=== PATIENT | male | born 1955 | race Caucasian/White ===

== ENCOUNTER 2018-02-14 13:48 | Observation (INO) ==
[2018-02-14] MEDS ORDERED: Naloxone 0.4 MG/ML INJ IVP PRN (17:58)
[2018-02-14] MEDS ORDERED: traMADol 50 MG TABLET PO PRN (17:59)
--- NOTE | 2018-02-14 18:15 | Internal Med History&Physical ---
Date of Encounter: 02/14/18 Time of Encounter: 17:00 Internal Medicine - H&P: HPI Chief complaint: CP Admitted From: Emergency Dept Plans for Post Hospital Care: Home History of present illness: Mr. Gill is a 62 year old male w/PMH of HTN, asthma, osteoarthritis, fibromyalgia, and anxiety presents from [place] [facility] w/CC of CP that began last night at work as centralized pressure that was intermittent. 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 Sx w/exertion. No alleviating factors. Associated factors: lightheadedness, HTN, headache, dizziness, weakness. Denies nausea, vomiting, diaphoresis. Pt. denies any cardiac hx, hx of catheterization/stents, or recent cardiac w/u. Patient denies recent illness , fever, chills, nausea, vomiting, changes in vision, unusual bleeding, abdominal pain, cough, chest congestion, diarrhea, constipation, numbness, tingling, pre-syncope, or syncope. Past Med Surg Social Fam HX - Past Medical History Source: patient, old records reviewed, obtained from family Medical history: asthma, fibromyalgia, hypertension, other (Osteoarthritis) Additional medical history: chronic back pain Psychiatric history: anxiety - Past Surgical History Surgical History: orthopedic, other Additional surgical history: neck fusion, skin graft - Social History Smoking Status: Never smoker Alcohol use: none Drug use: none Occupational status: employed Current living situation: Home, With Family Activity Level: Independent ambulation, Very active Recent Out of Country Travel Within the Last 8 Weeks: No Exposure or Possible Exposure to Illness During Travel: No - Family History Mother Race: Family Member Ethnicity: Non- Living Status: Age at : 83 Cause of : Alzheimer's disease Hx Family Respiratory Disorders: Yes (HTN) Hx Family Endocrine Disorder: Yes (DM) Hx Family Neurologic Disorders: Yes (Alzheimer's disease) Father Race: Family Member Ethnicity: Non- Living Status: Age at : 84 Cause of : HF Hx Family Cardiac Disorders: Yes (HF, [place], HTN) Hx Family Genitourinary Disorders: Yes (Kidney stones) Hx Family Endocrine Disorder: Yes (DM) Brother Race: Family Member Ethnicity: Non- Living Status: Still Living Hx Family Cardiac Disorders: Yes (Atrial fibrillation) Sister Race: Family Member Ethnicity: Non- Living Status: Still Living Hx Family Musculoskeletal Disorders: Yes (Osteoarthritis, Fibromyalgia) Internal Medicine - H&P: Meds Atenolol [Tenormin] 50 mg PO DAILY 02/14/18 [History] Gabapentin [Neurontin] 600 mg PO TID 02/14/18 [History] Ibuprofen [Ibu] 600 mg PO TID 02/14/18 [History] Lisinopril [Zestril] 10 mg PO DAILY 02/14/18 [History] Tramadol HCl [Ultram] 100 mg PO TID PRN 02/14/18 [History] clonazePAM [Clonazepam] 0.5 mg PO DAILY 02/14/18 [History] 3 Allergy/AdvReac Type Severity Reaction Status Date / Time hydrocodone [From Vicodin] AdvReac Itching Verified 09/04/15 11:41 All Systems PM: A 10-system review of systems was performed and is negative for pertinent findings except as documented above in the HPI. - Constitutional Constitutional: as per HPI, fatigue, weakness, no chills, no fever(s), no night sweats - EENT Eyes: no change in vision, no discharge, no pain, no photophobia Ears: no ear discharge, no ear pain, no tinnitus Nose, mouth and throat: no dysphagia, no nasal discharge, no neck pain, no sore throat - Breasts Breasts: as per HPI - Cardiovascular Cardiovascular ROS IM: as per HPI, chest pain, lightheadedness, no diaphoresis, no dyspnea, no palpitations, no syncope - Respiratory Respiratory: no cough, no dyspnea, no wheezing, no excessive phlegm production - Gastrointestinal Gastrointestinal: no abdominal pain, no diarrhea, no hematemesis, no hematochezia, no melena, no nausea, no vomiting - Genitourinary Genitourinary ROS male: as per HPI - Musculoskeletal Musculoskeletal ROS IM: as per HPI, arthralgias, myalgias, no numbness, no tingling - Integumentary Integumentary IM: no rash, no unusual bruising - Neurological Neurological ROS: as per HPI, dizziness, headache(s), weakness, no confusion, no convulsions, no focal weakness, no numbness, no tingling, no tremor(s) - Psychiatric Psychiatric: as per HPI, anxiety - Endocrine Endocrine IM: as per HPI - Hematologic/Lymphatic Hematologic/Lymphatic: no easy bruising - Allergic/Immunologic Allergic/Immunologic: as per HPI - Constitutional Vitals: Temp Pulse Resp BP Pulse Ox 98.2 F 53 16 139/89 94 02/14/18 15:44 02/14/18 15:44 02/14/18 15:44 02/14/18 15:44 02/14/18 15:44 General appearance: Present: cooperative, A&O X 3, pleasant, no acute distress, answers questions appropriately - Head Head exam: Present: atraumatic, normocephalic - Eye Eye exam: Present: PERRL, conjuntiva pink, sclera anicteric Pupils: Present: PERRL - ENT ENT exam: Present: normal exam - Neck Neck exam general surgery: Present: normal inspection, supple, trachea midline. Absent: lymphadenopathy - Respiratory Respiratory exam: Present: CTAB. Absent: accessory muscle use, rales, rhonchi, wheezes - Cardiovascular Cardiovascular exam: Present: bradycardia, +S1, +S2. Absent: diastolic murmur, gallop, rubs, systolic murmur - GI/Abdominal GI/Abdominal exam: Present: normal bowel sounds, soft, no peritoneal signs. Absent: distended, tenderness - Rectal Rectal exam: Present: deferred - Additional comments: exam deferred. - Extremities Exam Extremities exam: Present: warm, radial pulses palpable and symmetrical. Absent : calf tenderness, cyanotic, pedal edema - Back Exam Back exam: Present: normal inspection - Neurological Exam Neurological exam: Present: alert, CN II-XII intact, oriented X3, no focal deficits. Absent: pronater drift, facial droop, speech deficit - Psychiatric Psychiatric exam: Present: normal affect, normal mood - Skin Skin exam: Present: dry, intact Internal Med - H&P Results - EKG Data EKG shows normal: sinus rhythm Rate: bradycardia - EKG Data Prior EKG available for review: no EKG comments: 02/14/18 18:23 EKG dated 02/14/18 shows sinus bradycardia. - Diagnostic Studies Chest x-ray Additional comments: EXAMINATION: TWO VIEWS OF THE CHEST 02/14/2018 12:54 pm COMPARISON: None. HISTORY: ORDERING SYSTEM PROVIDED HISTORY: chest pain Initial encounter FINDINGS: Orthopedic hardware in the cervical spine. No focal consolidation, pleural effusion or pneumothorax. The cardiomediastinal silhouette is unremarkable. No overt pulmonary edema. No acute osseous abnormality. Hyperinflated lungs. XR/XR chest 2V IMPRESSION: COPD. No acute cardiopulmonary findings. D/ / Andreina Parker MD / Andreina Parker MD Interpreting Provider: Andreina Parker MD CT scan - head Additional comments: EXAMINATION: CT OF THE HEAD WITHOUT CONTRAST 02/14/2018 12:54 pm TECHNIQUE: CT of the head was performed without the administration of intravenous contrast. Dose modulation, iterative reconstruction, and/or weight based adjustment of the mA/kV was utilized to reduce the radiation dose to as low as reasonably achievable. COMPARISON: None. HISTORY: ORDERING SYSTEM PROVIDED HISTORY: hypertensive urgency FINDINGS: BRAIN/VENTRICLES: There is no acute intracranial hemorrhage, mass effect or midline shift. No abnormal extra-axial fluid collection. The ellison-white differentiation is maintained without evidence of an acute infarct. There is no evidence of hydrocephalus. ORBITS: The visualized portion of the orbits demonstrate no acute abnormality. SINUSES: The visualized paranasal sinuses and mastoid air cells demonstrate no acute abnormality. SOFT TISSUES/SKULL: No acute abnormality of the visualized skull or soft tissues. CT/CT head/brain wo con IMPRESSION: No acute intracranial abnormality. D/ / Damien Huff MD / Damien Huff MD Interpreting Provider: Damien Huff MD - Assessment and plan (1) Chest pain Current Visit: Yes Status: Acute Assessment and plan: Acute CP since last night when pt. was at work. Describes pain as centralized pressure that was intermittent. 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 Sx w/exertion. No alleviating factors. Associated factors: lightheadedness, HTN, headache, dizziness, weakness. Denies nausea, vomiting, diaphoresis. Pt. denies any cardiac hx, hx of catheterization/stents, or recent cardiac w/u. Initial troponin <0.03. Will trend. Continuous cardiac telemetry. Supplemental O2 w/titration and SpO2 monitoring PRN. Echocardiogram. NPO @ midnight for a.m. nuclear stress test. Bilateral carotid Dopplers d/t dizziness. 80 mg PO dose of Lipitor. Aspirin. Consider Cardiology consult if Echocardiogram, troponin, and/or stress test results abnormal. Pt. discussed w/ Dr. More who agrees w/plan of care. Pt. is high risk for further morbidity and cardiac event based on new onset of CP and cardiac sx, strong familial hx of cardiac disease and [place] (HF, [place], HTN, Afib), and personal risk factors of HTN. Recent HLD status unknown so lipid panel in a.m. labs. Observation. Qualifiers: Chest pain type: unspecified Qualified Code(s): R07.9 - Chest pain, unspecified (2) Hypokalemia Current Visit: Yes Status: Acute Assessment and plan: Acute hypokalemia w/potassium of 3.2 on admission. 40 mEq PO of potassium ordered. Potassium level @ 23:00. Will add additional PO dosing if still hypokalemic. Monitor f/u labs. Continuous cardiac telemetry. (3) Dizziness Current Visit: Yes Status: Acute Assessment and plan: Acute dizziness and weakness w/CP sx. Supplemental O2 w/titration and SpO2 monitoring PRN. Bilateral carotid Dopplers. Falls/safety precautions and up with assist only. CT of the head shows no acute intracranial abnormality. (4) Elevated brain natriuretic peptide (BNP) level Current Visit: Yes Status: Acute Assessment and plan: Mildly elevated BNP of 115 on admission, likely d/t current CP sx. Pt. denies hx or dx of CHF. Echocardiogram ordered. Continuous cardiac telemetry. Monitor pt. and I&O. (5) HTN (hypertension) Current Visit: Yes Status: Chronic Assessment and plan: Hx of chronic HTN. Monitor pt. and VS. Continue pts. Atenolol and lisinopril. Qualifiers: Hypertension type: essential hypertension Qualified Code(s): I10 - Essential (primary) hypertension (6) Anxiety Current Visit: Yes Status: Chronic Assessment and plan: Hx of chronic anxiety. Continue pts. Clonazepam. (7) Fibromyalgia Current Visit: Yes Status: Chronic Assessment and plan: Hx of chronic fibromyalgia and osteoarthritis. Continue pts. Ultram, Ibuprofen, and Neurontin. (8) DVT prophylaxis Current Visit: Yes Status: Acute Assessment and plan: Heparin 5,000 units SQ Q8HR for DVT prophylaxis. Monitor pt. for signs of bleeding. - Time Spent With Patient Total time spent is greater than 50% in coordination of care (as documented) at patient's floor/unit and/or counseling patient: Greater than 35 minutes
[2018-02-14] MEDS: Ibuprofen 600 MG TABLET PO SCH (19:48)
[2018-02-14] MEDS ORDERED: Acetaminophen 325 MG TABLET PO PRN (21:02)
[2018-02-14] MEDS: Gabapentin 300 MG CAPSULE PO SCH (21:47)
[2018-02-14] MEDS: *HR* Heparin 5,000 UNIT/ML VIAL SQ SCH (21:47)
[2018-02-14] MEDS ORDERED: Melatonin 3 MG TABLET PO PRN (23:28)
[2018-02-15 01:03] LABS: Basophils % 0.9 %; Eosinophils # 0.1 K/mcL (0.0-0.6); Eosinophils % 2.4 %; Hematocrit 33.8 % (37.5-50.1); Immature Granulocytes % 0.2 % (0-4); Lymphocytes # 1.2 K/mcL (0.6-4.6); Lymphocytes % 25.8 %; Mean Corpuscular HGB Conc 35.5 g/dL (31.6-35.5); Mean Corpuscular Hemoglobin 32.3 pg (28.0-33.3); Mean Corpuscular Volume 90.9 fL (83.0-100.0); Mean Platelet Volume 10.3 fL (9.4-12.4); Monocytes # 0.4 K/mcL (0.0-1.3); Monocytes % 8.1 %; Neutrophils # 2.9 K/mcL (1.6-8.9); Platelet Count 177 K/mcL (140-400); Red Blood Count 3.72 M/mcL (4.19-5.50); Red Cell Distribution Width 11.9 % (11.5-14.5); Segmented Neutrophils % 62.6 %
[2018-02-15 01:24] LABS: Alanine Aminotransferase 21 Units/L (7-52); Albumin/Globulin Ratio 1.7 (1.1-2.2); Alkaline Phosphatase 57 Units/L (34-104); Aspartate Amino Transferase 19 Units/L (13-39); BUN/Creatinine Ratio 13 (6-26); Bilirubin,Total 0.5 mg/dL (0.3-1.0); Blood Urea Nitrogen 12 mg/dL (8-23); Carbon Dioxide 27 mEq/L (23-29); Chloride 107 mEq/L (98-107); Chol/HDL Ratio 5.5 (0-4.9); Cholesterol 197 mg/dL (< 200); Globulin 2.3 g/dL (2.4-3.5); Glucose 90 mg/dL (70-105); HDL Cholesterol 36 mg/dL (40-59); LDL Cholesterol,Calculated 134 mg/dL (0-99); Osmolality,Calculated 289 (280-300); Potassium 3.7 mEq/L (3.5-5.1); Sodium 140 mEq/L (136-145); Total Protein 6.3 g/dL (6.4-8.9); Triglycerides 135 mg/dL (< 150); eGFR For African Americans > 60 (> 60); eGFR For Non-African Americans > 60 (> 60)
[2018-02-15] MEDS: *HR* Heparin 5,000 UNIT/ML VIAL SQ SCH (05:16)
[2018-02-15] MEDS ORDERED: Regadenoson 0.4 MG/5 ML SYRINGE IVP ONE (06:50)
[2018-02-15 07:59] LABS: Estimated Average Glucose 114 mg/dl; Hemoglobin A1C 5.6 %
[2018-02-15] MEDS ORDERED: clonazePAM 0.5 MG TABLET PO SCH (09:00)
[2018-02-15] MEDS: Ibuprofen 600 MG TABLET PO SCH (09:21)
[2018-02-15] MEDS: Gabapentin 300 MG CAPSULE PO SCH (09:21)
--- NOTE | 2018-02-15 10:09 | Internal Med Progress Note ---
Date of Encounter: 02/15/18 Time of Encounter: 10:09 - Assessment and plan (1) Chest pain Current Visit: Yes Status: Inactive Qualifiers: Chest pain type: unspecified Qualified Code(s): R07.9 - Chest pain, unspecified (2) HTN (hypertension) Current Visit: Yes Status: Chronic Qualifiers: Hypertension type: essential hypertension Qualified Code(s): I10 - Essential (primary) hypertension (3) DVT prophylaxis Current Visit: Yes Status: Acute (4) Anxiety Current Visit: Yes Status: Chronic (5) Fibromyalgia Current Visit: Yes Status: Chronic (6) Dizziness Current Visit: Yes Status: Acute (7) Hypokalemia Current Visit: Yes Status: Acute (8) Elevated brain natriuretic peptide (BNP) level Current Visit: Yes Status: Acute - Time Spent With Patient Total time spent is greater than 50% in coordination of care (as documented) at patient's floor/unit and/or counseling patient: - Constitutional Vitals: Temp Pulse Resp BP Pulse Ox 97.7 F 70 18 140/91 93 02/15/18 09:05 02/15/18 09:05 02/15/18 09:05 02/15/18 09:05 02/15/18 09:05 General appearance: Present: cooperative, A&O X 3, pleasant, no acute distress, answers questions appropriately Internal Medicine: Result - Labs CBC & Chem 7: 02/15/18 00:48 02/15/18 00:48 Labs: Short CBC 02/15/18 Range/Units 00:48 WBC 4.6 (4.3-11.1) K/mcL Hgb 12.0 L (12.9-16.9) g/dL Hct 33.8 L (37.5-50.1) % Plt Count 177 (140-400) K/mcL Neutrophils # 2.9 (1.6-8.9) K/mcL BMP 02/14/18 02/15/18 23:19 00:48 Sodium 140 Potassium 3.8 3.7 Chloride 107 Carbon Dioxide 27 BUN 12 Creatinine 0.90 Glucose 90 Calcium 9.0 Cardiac Enzymes 02/14/18 02/15/18 Range/Units 18:26 00:48 Troponin I < 0.03 < 0.03 (< 0.04) ng/mL Liver Function 02/15/18 Range/Units 00:48 Total Bilirubin 0.5 (0.3-1.0) mg/dL AST 19 (13-39) Units/L ALT 21 (7-52) Units/L Alkaline Phosphatase 57 (34-104) Units/L Albumin 4.0 (3.5-5.7) g/dL Consult Discharge Plan - Plan Referrals: Radha Flannery CNP [Primary Care Provider] - 02/22/18 9:00 am
[2018-02-15] MEDS ORDERED: hydrALAZINE 10 MG TABLET PO PRN (10:21)
[2018-02-15 11:24] VITALS: BP 134/84
--- NOTE | 2018-02-15 13:37 | Discharge Summary ---
<FrankyJanieMonster A - Last Filed: 02/15/18 14:53> - NOTES TO OUTPATIENT PROVIDER Notes to Outpatient Provider: Mr. Gill was admitted for chest pain on 02/14. Cardiac workup revealed sinus bradycardia. Discontinued home Atenolol and increased dose of Lisinopril to 20mg. Orders not resulted at time of discharge: Pending orders 02/14/18 18:03 EV echocardiogram Routine 02/14/18 18:04 NM naveen perf SPECT multi [NM] Routine 02/14/18 18:48 EV carotid duplex imaging BI Routine 02/16/18 04:00 Complete Blood Count [HEME] AM 0400 Comprehensive Metabolic Panel AM 0400 02/17/18 04:00 Complete Blood Count [HEME] AM 0400 Comprehensive Metabolic Panel AM 0400 Date of Encounter: 02/15/18 Time of Encounter: 13:35 - Discharge Diagnosis (1) Dizziness Priority: Primary Status: Acute Assessment and Plan: CT of the head revealed no acute abnormalities. Pt found to have sinus bradycardia. Hold home atenolol for bradycardia, but increase home lisinopril to continue BP management. (2) Chest pain Priority: Primary Status: Acute Assessment and Plan: Exercise stress test was normal Echocardiogram performed. Will call pt with results. Qualifiers: Chest pain type: chest pain on breathing Qualified Code(s): R07.1 - Chest pain on breathing; R07.81 - Pleurodynia (3) HTN (hypertension) Priority: Secondary Status: Chronic Assessment and Plan: Stop Atenolol Increase home dose of lisinopril to 20mg qd. Qualifiers: Hypertension type: essential hypertension Qualified Code(s): I10 - Essential (primary) hypertension (4) Anxiety Priority: Secondary Status: Chronic Assessment and Plan: Continue home meds (5) Fibromyalgia Priority: Secondary Status: Chronic Assessment and Plan: Continue Ultram, Ibuprofen, and Neurontin. Take ibuprofen with food and drink plenty of fluids. (6) Hypokalemia Priority: Secondary Status: Acute Assessment and Plan: Pt works in a very hot environment and drinks lots of water. Encouraged to drink some gatorade and eat bananas. (7) Elevated brain natriuretic peptide (BNP) level Priority: Secondary Status: Acute Hospital course: Mr. Gill is a 62 year old male Discharge discussed with: patient, family, nurse - Time Spent with Patient Total time spent providing and/or coordinating discharge services: - Discharge Medications Prescriptions: Atorvastatin [Lipitor] 10 mg PO HS #30 tablet Home Medications: Gabapentin [Neurontin] 600 mg PO TID 02/14/18 [History] Ibuprofen [Ibu] 600 mg PO TID 02/14/18 [History] Tramadol HCl [Ultram] 100 mg PO TID PRN 02/14/18 [History] clonazePAM [Clonazepam] 0.5 mg PO DAILY 02/14/18 [History] Atorvastatin [Lipitor] 10 mg PO HS #30 tablet 02/15/18 [Rx] Lisinopril [Zestril] 20 mg PO DAILY #30 02/15/18 [Rx] Allergies/Adverse Reactions: 3 Allergy/AdvReac Type Severity Reaction Status Date / Time hydrocodone [From Vicodin] AdvReac Itching Verified 09/04/15 11:41 Date of admission: 02/14/18 15:23 Primary care physician: Radha Flannery, [facility] Discharging clinician: Monster Wilkins - Constitutional Vitals: Temp Pulse Resp BP Pulse Ox 97.9 F 62 18 134/84 97 02/15/18 11:22 02/15/18 11:22 02/15/18 11:22 02/15/18 11:22 02/15/18 11:22 General appearance: Present: cooperative, A&O X 3, pleasant, no acute distress, answers questions appropriately Exam: Head: normocephalic, atraumatic Eyes: PERRL, EOMI, conjunctiva pink, sclera anicteric Neck: supple, trachea midline Lungs: CTA bilaterally. non-labored breathing. No wheezes, rales, or rhonchi noted. Heart: bradycardia with regular rhythm. +S1. +S2. no murmurs, clicks, or rubs noted. GI: abdomen soft, non-tender, non-distended. Normoactive bowel sounds. Extremities: warm. radial pulses present and symmetrical. No pedal edema or cyanosis noted. Neuro: A&Ox3. no focal deficits. no speech abnormality Skin: warm, dry, and intact. - Patient Status Disposition: Home, Self-Care Condition: Fair Functional capacity at discharge: independent ambulation Overall status at discharge: patient is back to baseline - Ambulatory Orders Ambulatory Orders: EV echocardiogram Time Frame: 2 Months, Location: Determined By Patient - Discharge Instructions Instructions: Bradycardia (DC) Follow Up With: Radha Flannery CNP [Primary Care Provider] - 02/22/18 9:00 am - Diet and Activity Activity: increase activity as tolerated Diet: low fat, low cholesterol, low salt diet <[email or web address] - Last Filed: 02/15/18 17:56> Orders not resulted at time of discharge: Pending orders 02/14/18 18:04 NM naveen perf SPECT multi [NM] Routine Date of Encounter: 02/15/18 - Discharge Diagnosis (1) Chest pain Status: Acute Qualifiers: Chest pain type: chest pain on breathing Qualified Code(s): R07.1 - Chest pain on breathing; R07.81 - Pleurodynia (2) HTN (hypertension) Status: Chronic Qualifiers: Hypertension type: essential hypertension Qualified Code(s): I10 - Essential (primary) hypertension (3) Anxiety Status: Chronic (4) Fibromyalgia Status: Chronic (5) Dizziness Status: Acute (6) Hypokalemia Status: Acute (7) Elevated brain natriuretic peptide (BNP) level Status: Acute Hospital course: Mr. Gill is a 62 year old male - Time Spent with Patient Total time spent providing and/or coordinating discharge services: Date of admission: 02/14/18 15:23 Primary care physician: Radha Flannery CNP - Constitutional Vitals: Temp Pulse Resp BP Pulse Ox 97.9 F 62 18 134/84 97 02/15/18 11:22 02/15/18 11:22 02/15/18 11:22 02/15/18 11:22 02/15/18 11:22 - Attending Attestation I examined this patient and my medical decision-making was reviewed with the Resident Physician Dr. Wilkins. I agree with the documented findings, disposition and treatment plan as described except to the extent set forth below. Mr. Gill is a 62 year old male w/PMH of HTN, asthma, osteoarthritis, fibromyalgia, and anxiety presents from [place] [facility] w/CC of CP that began last night at work as centralized pressure that was intermittent. 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 Pt denied any syncopal episode. He denied any active CP Now Gen: A, A, O x 3 Chest: Diminished BS b/l Heart: S1S2+ a/p 1. Acute CP - ruled out ACS Negative stress test Negative trop 2. Sinus bradycardia recommend to stop taking Atenolol Medically stable to d/c home today
== END 2018-02-15 15:45 | disposition home or self-care (01) ==
LOC: 2NENU
PROVIDERS: ADMIT Student in an Organized Health Care Education/Training Program; ATTEND Student in an Organized Health Care Education/Training Program